=== PATIENT | female | born 1970 | race Caucasian/White ===

== ENCOUNTER 2017-01-21 09:46 | Emergency (ER) | payer BC ==
[~2017-01-21] VITALS: Ht 167.6 cm; Wt 59.4 kg
[2017-01-21 09:52] VITALS: BP 122/78
[2017-01-21 10:26] LABS: HEMATOCRIT 43.5 % (36.0-46.0); MCH 31.4 PG (29.0-34.0); MCHC 33.8 G/DL (30.0-36.0); MCV 92.9 FL (83-99); PLATELET COUNT 235 K/uL (156-360); RBC DIS.WIDTH-CV 13.2 % (11.8-14.6); RBC DIS.WIDTH-SD 43.8 % (39-53); RED BLOOD COUNT 4.68 M/uL (3.80-5.20); WHITE BLOOD COUNT 6.5 K/uL (4.1-10.2)
[2017-01-21 10:37] LABS: CHLORIDE 108 mEq/L (99-109); POTASSIUM 4.7 mEq/L (3.7-5.4); SODIUM 140 mEq/L (136-147)
[2017-01-21 10:39] LABS: GLUCOSE 95 mg/dL (70-99)
[2017-01-21 10:40] LABS: ANION GAP 8 MEQ/L (2-14); D-DIMER ELISA 0.25 mg/L FEU (< 0.57)
[2017-01-21 10:42] LABS: GFR ESTIMATE (CALCULATED) > 59 mL/min/
[2017-01-21 10:43] LABS: UREA NITROGEN (BUN) 18 mg/dL (9-23)
[2017-01-21] MEDS ORDERED: ULTRAM50 MG PO (10:51)
[2017-01-21] MEDS ORDERED: FLEXERIL10 MG PO (10:51)
== END 2017-01-21 11:11 | disposition home or self-care (01) ==
LOC: EME 09:46
PROVIDERS: Emergency Medicine
DX: M54.9 Dorsalgia, unspecified (principal); S22.32XA Fracture of one rib, left side, initial encounter for closed fracture; Z88.2 Allergy status to sulfonamides
CPT/HCPCS: 80048; 85027; 85379; 93005; 99281; 99284